=== PATIENT | female | born 1950 | race Caucasian/White ===

== ENCOUNTER 2018-10-17 18:00 | Emergency (ER) | payer OTHER ==
[~2018-10-17] VITALS: Ht 157.5 cm; Wt 58.5 kg
[2018-10-17] MEDS ORDERED: BENICAR40 MG PO (18:15)
[2018-10-17] MEDS ORDERED: MAGOX 400400 MG PO (18:16)
[2018-10-17] MEDS ORDERED: NORVASC10 MG PO (18:16)
[2018-10-17] MEDS ORDERED: CALCIUM 500 +1 EAC5 PO (18:16)
[2018-10-17] MEDS ORDERED: ASPIR 8181 MG PO (18:17)
[2018-10-17] MEDS ORDERED: HYDRALAZINE 2525 MG PO (18:17)
[2018-10-17] MEDS ORDERED: KRILL OIL 3501 EACH PO (18:17)
[2018-10-17] MEDS ORDERED: PREMARIN30 GM TOP (18:18)
[2018-10-17] MEDS ORDERED: OMEPRAZOLE 20 M20 M1 PO (18:18)
[2018-10-17] MEDS ORDERED: NORCO 5-325 TA1 EACH PO ×2 (19:26→19:27)
[2018-10-17 19:39] VITALS: BP 171/66
== END 2018-10-17 19:39 | disposition home or self-care (01) ==
LOC: M.ERS 18:00
DX: S16.1XXA Strain of muscle, fascia and tendon at neck level, initial encounter (principal); R51 Headache; M54.5 Low back pain; M79.651 Pain in right thigh; Z90.49 Acquired absence of other specified parts of digestive tract; Z90.710 Acquired absence of both cervix and uterus; V49.59XA Passenger injured in collision with other motor vehicles in traffic accident, initial encounter; Y93.89 Activity, other specified; Y92.89 Other specified places as the place of occurrence of the external cause; Y99.8 Other external cause status